=== PATIENT | female | born 1960 | race Caucasian/White ===

== ENCOUNTER 2017-07-14 09:38 | Emergency (ER) | payer OTHER ==
[~2017-07-14] VITALS: Ht 165.1 cm; Wt 76.8 kg
[~2017-07-14 09:38] MED LIST: ASPI-390 PO; ATV5 PO; EFFSR75 PO; FEXO1TAB45 PO
[2017-07-14 09:45] VITALS: TEMP 36.6; Ht 165.1 cm; Wt 76.8 kg
[2017-07-14] MEDS ORDERED: SODIUM CHLORIDE 0.9% 1000ML 1,000 ML IV STA (10:25)
[2017-07-14] MEDS ORDERED: PROCHLORPERAZINE 5 MG/ML 2 ML VIAL IV STA (10:25)
[2017-07-14] MEDS ORDERED: DiphenhydrAMINE HCL 50 MG/ML VIAL IV STA (10:25)
[2017-07-14 10:53] LABS: BASO % 0.2 %; BASO ABS # 0.01 K/uL (0-0.2); EOS % 1.6 %; EOS ABS # 0.08 K/uL (0-0.5); HEMATOCRIT 36.2 % (37-47); HEMOGLOBIN 12.5 g/dL (12.0-16.0); IG# 0.01 K/uL (0.00-0.02); LYMPH % 29.3 %; LYMPH ABS # 1.51 K/uL (1.2-3.4); MEAN CELL VOLUME 89.6 fL (80-100); MEAN CORPUSCULAR HEMOGLOBIN 30.9 pg (25-34); MEAN CORPUSCULAR HGB CONC 34.5 g/dl (32-36); MEAN PLATELET VOLUME 9.7 fL (7.4-10.4); MONO % 5.4 %; MONO ABS # 0.28 K/uL (0.11-0.59); NEUT % 63.3 %; NEUT ABS # 3.27 K/uL (1.4-6.5); PLATELET COUNT 188 K/uL (130-400); RED CELL DISTRIBUTION WIDTH SD 42.5 fL (36.4-46.3); WHITE BLOOD COUNT 5.16 K/uL (4.8-10.8)
[2017-07-14 11:04] LABS: PTT PATIENT 25.2 SECONDS (21.0-31.0)
[2017-07-14 11:12] LABS: CALCIUM 9.1 mg/dl (8.5-10.1); CREATININE 0.72 mg/dl (0.60-1.20); POTASSIUM 3.6 mmol/L (3.5-5.1)
[2017-07-14 11:15] LABS: TOTAL PROTEIN 7.3 gm/dl (6.4-8.2)
--- NOTE | 2017-07-14 11:24 | DIAGNOSTIC IMAGING REPORT ---
CT OF THE HEAD WITHOUT CONTRAST CLINICAL HISTORY: Headache. COMPARISON STUDY: Head CT February 14, 2015. CT DOSE: 912.23 mGycm TECHNIQUE: Helical axial images of the head were obtained without IV contrast. Automated exposure control was utilized for the study. A dose lowering technique was utilized adhering to the principles of ALARA. FINDINGS: No acute intracranial hemorrhage, midline shift or mass effect is present. Brain volume is normal. Ventricular system is normal. The basilar cisterns are patent. There are no extra-axial collections. Valerio-white differentiation is maintained. There are no findings to suggest acute dural sinus thrombosis or acute territorial infarct. There are no significant calvarial abnormalities. Mastoid air cells are clear. There is minimal mucosal thickening of the ethmoid sinuses. IMPRESSION: No acute intracranial findings. Electronically signed by: Keith Puentes M.D. 07/14/2017 11:23 AM Dictated Date/Time: 07/14/2017 11:18 AM
[2017-07-14] MEDS ORDERED: LORA-741 PO (12:06)
[2017-07-14 12:22] LABS: INFLUENZA A PCR Neg for Influ A (NEG); INFLUENZA B PCR Neg for Influ B (NEG)
--- NOTE | 2017-07-14 12:54 | DIAGNOSTIC IMAGING REPORT ---
LUMBAR SPINE 5 VIEWS HISTORY: Low back pain. COMPARISON: None. FINDINGS: There is no fracture. No subluxation. Mild levoscoliosis which could be positional. The sacrum is intact. Mild to moderate facet degenerative changes within the lumbar spine. Moderate disc space narrowing with endplate osteophytes at L2-L3. Mild disc space narrowing at L5-S1. IMPRESSION: 1. No fracture or subluxation within the lumbar spine. 2. Mild levoscoliosis. 3. Degenerative changes as described above most pronounced at the L2-L3 level. Electronically signed by: Eliezer Cabrera M.D. 07/14/2017 12:53 PM Dictated Date/Time: 07/14/2017 12:51 PM
[2017-07-14 13:19] VITALS: BP 140/82; PULSE 74; O2SAT 95
--- NOTE | 2017-07-14 17:24 | EMERGENCY ROOM VISIT NOTE ---
History Report prepared by Neetu: Britta Orr Under the Supervision of: Dr. Rajeev Quiñones M.D. First contact with patient: 10:17 Chief Complaint: FLU LIKE SX Stated Complaint: HEADACHE,LOWER BACK PAIN, SICK IN STOMACH History of Present Illness The patient is a 56 year old female who presents to the Emergency Room with complaints of a constant headache for the past two days. She has a history of migraine headaches and states that initially she thought that she was just having a typical migraine. She states it feels like a migraine but is lasting longer than usual. She reports throbbing pain diffusely throughout her head. Her symptoms are worsened with light and noise. She reports nausea and neck pain. She does not typically have neck pain with her migraines. The patient notes some diffuse body aches. Yesterday she started having lower back pain that is different from her typical arthritis pain. She rates her current pain as a 7/10 in severity. The patient denies fevers, cough, congestion, vomiting, abdominal pain, and diarrhea. Source of History: patient Onset: 2 days ago Position: head Symptom Intensity: 7/10 Quality: other (throbbing) Timing: constant Modifying Factors (Worsening): other (light, sound) Associated Symptoms: + neck pain, + nausea, + back pain, No fevers, No cough , No vomiting, No abdominal pain, No diarrhea Note: Pt notes diffuse body aches. Review of Systems See HPI for pertinent positives & negatives. A total of 10 systems reviewed and were otherwise negative. Past Medical & Surgical Medical Problems: (1) Anxiety (2) Depression Surgical Problems: (1) History of cataract extraction (2) History of total vaginal hysterectomy Family History No pertinent history stated. Social History Smoking Status: Never Smoker Alcohol Use: occasionally Drug Use: none Marital Status: Housing Status: lives with family Occupation Status: employed Current/Historical Medications Scheduled Venlafaxine Hcl (Effexor Extended Rel), 75 MG PO DAILY Scheduled PRN Htldpux-Mdgtjkjbtsgwl-Lcxkdfef (Excedrin Migraine), 2 TAB PO Q12 PRN for Migraine Lorazepam (Ativan), 0.5 MG PO Q6H PRN for Anxiety Allergies Uncoded Allergies: NICKELSULFATE (Allergy, Intermediate, RASH, 06/29/09) Physical Exam Vital Signs Date Time Temp Pulse Resp B/P (MAP) Pulse Ox O2 Delivery O2 Flow Rate FiO2 07/14/17 13:19 74 16 140/82 95 07/14/17 11:02 89 139/77 100 Room Air 07/14/17 09:45 36.6 79 18 133/84 98 Room Air Physical Exam Constitutional: Vital signs reviewed. Eyes: Pupils are equal round reactive to light. Conjunctiva are noninjected. ENT: Pharynx is clear without erythema or exudate. Mucous membranes are moist. Neck supple without meningeal signs. Respiratory: Clear to auscultation bilaterally. Breath sounds are equal bilaterally. Cardiovascular: Regular rate and rhythm. No rubs or gallops. GI: Soft, nondistended and nontender. Bowel sounds are present. Musculoskeletal: No peripheral edema. No lower extremity tenderness. Integumentary: No cyanosis. Neurological: The patient is awake and alert. Cranial nerves II-XII are intact. Motor is 5 out of 5 all extremities. Sensation is intact to light touch all extremities. Normal speech. No pronator drift. Negative Kernig's and Brudzinski's signs. Psychiatric: Normal affect. Medical Decision & Procedures ER Provider Diagnostic Interpretation: Radiology results as stated below per my review and the radiologist's interpretation: LUMBAR SPINE 5 VIEWS HISTORY: Low back pain. COMPARISON: None. FINDINGS: There is no fracture. No subluxation. Mild levoscoliosis which could be positional. The sacrum is intact. Mild to moderate facet degenerative changes within the lumbar spine. Moderate disc space narrowing with endplate osteophytes at L2-L3. Mild disc space narrowing at L5-S1. IMPRESSION: 1. No fracture or subluxation within the lumbar spine. 2. Mild levoscoliosis. 3. Degenerative changes as described above most pronounced at the L2-L3 level. Electronically signed by: Eliezer Cabrera M.D. 07/14/2017 12:53 PM Dictated Date/Time: 07/14/2017 12:[address] OF THE HEAD WITHOUT CONTRAST CLINICAL HISTORY: Headache. COMPARISON STUDY: Head CT February 14, 2015. CT DOSE: 912.23 mGycm TECHNIQUE: Helical axial images of the head were obtained without IV contrast. Automated exposure control was utilized for the study. A dose lowering technique was utilized adhering to the principles of ALARA. FINDINGS: No acute intracranial hemorrhage, midline shift or mass effect is present. Brain volume is normal. Ventricular system is normal. The basilar cisterns are patent. There are no extra-axial collections. Valerio-white differentiation is maintained. There are no findings to suggest acute dural sinus thrombosis or acute territorial infarct. There are no significant calvarial abnormalities. Mastoid air cells are clear. There is minimal mucosal thickening of the ethmoid sinuses. IMPRESSION: No acute intracranial findings. Electronically signed by: Keith Puentes M.D. 07/14/2017 11:23 AM Dictated Date/Time: 07/14/2017 11:18 AM Laboratory Results 07/14/17 10:39 Red Blood Count 4.04, Mean Corpuscular Volume 89.6, Mean Corpuscular Hemoglobin 30.9, Mean Corpuscular Hemoglobin Concent 34.5, Mean Platelet Volume 9.7, Neutrophils (%) (Auto) 63.3, Lymphocytes (%) (Auto) 29.3, Monocytes (%) (Auto) 5.4, Eosinophils (%) (Auto) 1.6, Basophils (%) (Auto) 0.2, Neutrophils # (Auto) 3.27, Lymphocytes # (Auto) 1.51, Monocytes # (Auto) 0.28, Eosinophils # (Auto) 0.08, Basophils # (Auto) 0.01 07/14/17 10:39 Test 07/14/17 10:39 07/14/17 11:00 07/14/17 12:12 White Blood Count 5.16 K/uL (4.8-10.8) Red Blood Count 4.04 M/uL (4.2-5.4) Hemoglobin 12.5 g/dL (12.0-16.0) Hematocrit 36.2 % (37-47) Mean Corpuscular Volume 89.6 fL (80-100) Mean Corpuscular Hemoglobin 30.9 pg (25-34) Mean Corpuscular Hemoglobin Concent 34.5 g/dl (32-36) Platelet Count 188 K/uL (130-400) Mean Platelet Volume 9.7 fL (7.4-10.4) Neutrophils (%) (Auto) 63.3 % Lymphocytes (%) (Auto) 29.3 % Monocytes (%) (Auto) 5.4 % Eosinophils (%) (Auto) 1.6 % Basophils (%) (Auto) 0.2 % Neutrophils # (Auto) 3.27 K/uL (1.4-6.5) Lymphocytes # (Auto) 1.51 K/uL (1.2-3.4) Monocytes # (Auto) 0.28 K/uL (0.11-0.59) Eosinophils # (Auto) 0.08 K/uL (0-0.5) Basophils # (Auto) 0.01 K/uL (0-0.2) RDW Standard Deviation 42.5 fL (36.4-46.3) RDW Coefficient of Variation 13.0 % (11.5-14.5) Immature Granulocyte % (Auto) 0.2 % Immature Granulocyte # (Auto) 0.01 K/uL (0.00-0.02) Prothrombin Time 10.1 SECONDS (9.0-12.0) Prothromb Time International Ratio 1.0 (0.9-1.1) Activated Partial Thromboplast Time 25.2 SECONDS (21.0-31.0) Partial Thromboplastin Ratio 1.0 Anion Gap 5.0 mmol/L (3-11) Est Creatinine Clear Calc Drug Dose 87.3 ml/min Estimated GFR () 107.0 Estimated GFR (Non- 92.3 BUN/Creatinine Ratio 24.0 (10-20) Calcium Level 9.1 mg/dl (8.5-10.1) Total Bilirubin 0.5 mg/dl (0.2-1) Direct Bilirubin 0.1 mg/dl (0-0.2) Aspartate Amino Transf (AST/SGOT) 15 U/L (15-37) Alanine Aminotransferase (ALT/SGPT) 28 U/L (12-78) Alkaline Phosphatase 62 U/L (45-117) Total Protein 7.3 gm/dl (6.4-8.2) Albumin 4.0 gm/dl (3.4-5.0) Influenza Type A (RT-PCR) Neg for Influ A (NEG) Influenza Type B (RT-PCR) Neg for Influ B (NEG) Urine Color YELLOW Urine Appearance CLEAR (CLEAR) Urine pH 8.0 (4.5-7.5) Urine Specific [place] 1.006 (1.000-1.030) Urine Protein NEG (NEG) Urine Glucose (UA) NEG (NEG) Urine Ketones NEG (NEG) Urine Occult Blood NEG (NEG) Urine Nitrite NEG (NEG) Urine Bilirubin NEG (NEG) Urine Urobilinogen NEG (NEG) Urine Leukocyte Esterase NEG (NEG) Laboratory results as reviewed by me. Medications Administered Medications (Trade) Dose Ordered Sig/Sky Route Start Time Stop Time Status Last Admin Dose Admin Sodium Chloride 1,000 ml @ 999 mls/hr Q1H1M STAT IV 07/14/17 10:25 07/14/17 11:25 DC 07/14/17 11:02 999 MLS/HR Prochlorperazine Edisylate (Compazine Inj) 10 mg NOW STAT IV 07/14/17 10:25 07/14/17 10:28 DC 07/14/17 10:58 10 MG Diphenhydramine HCl (Benadryl Inj) 50 mg NOW STAT IV 07/14/17 10:25 07/14/17 10:28 DC 07/14/17 10:58 50 MG ED Course 1017: The patient was evaluated in room B11B. A complete history and physical exam was performed. 1025: Benadryl 50 mg IV, Compazine 10 mg IV, NSS 1000 ml @ 999 mls/hr IV 1238: I updated the patient. Her headache is now just a 2/10. We are waiting for the results of her urine. 1300: I reassessed the patient at this time. She is feeling better and resting comfortably. I discussed the results and treatment plan with the patient. I answered all pertaining questions that she had. She expressed understanding and verbalized agreement. The patient will be discharged home. Medical Decision This is a 56-year-old female presents with headache and nausea and back pain. Differential diagnosis includes migraine headache, tension headache, intracranial bleed, intracranial mass, meningitis, influenza, UTI, lumbar disc disease, strain. I did perform a limited focused review of portions of the patient's old chart on the electronic medical record. The patient has had no recent pertinent visits to this hospital. I did evaluate the patient as noted above. The patient is presenting with a migraine headache. She does complain of some neck pain but has no meningeal signs or fever. I did order a flu test which was negative. IV access was established. I did treat the patient with IV Compazine and Benadryl as well as normal saline IV. I did order and personally review the patient's lumbar x- rays as described above. She does have scoliosis and degenerative changes. Urinalysis was negative. I did order and review the patient's blood work as noted in the electronic medical record. Her white blood cell count was not elevated. I did order a CT of the head. I did review the images myself as well as the radiology report as described above. There is no evidence of acute abnormality. I did reassess the patient. The patient states that her headache is significantly improved and rates it a 2 out of 10 in severity. She also states that her neck pain is resolved. I did discuss the test results with the patient. I did recommend follow-up with her doctor. She was discharged in good condition. Medication Reconcilliation Current Medication List: was personally reviewed by me Blood Pressure Screening Patient's blood pressure: Elevated blood pressure Blood pressure disposition: Referred to PCP Impression Primary Impression: Headache Additional Impression: Low back pain Scribe Attestation The scribe's documentation has been prepared under my direct and personally reviewed by me in its entirety. I confirm that the note above accurately reflects all work, treatment, procedures, and medical decision making performed by me. Departure Information Dispostion Home / Self-Care Referrals Jacklyn Burgos M.D. (PCP) Forms HOME CARE DOCUMENTATION FORM, IMPORTANT VISIT INFORMATION Patient Instructions Back Pain - [facility], ED Headache Migraine, My [facility] Additional Instructions You have been examined and treated today on an emergency basis only. This is not a substitute for, or an effort to provide, complete comprehensive medical care. It is impossible to recognize and treat all injuries or illnesses in a single emergency department visit. It is therefore important that you follow up closely with your physician. Call as soon as possible for an appointment. Return for worsening symptoms or if you develop fever, vomiting, abdominal pain , loss of control of your bowel or bladder, numbness or weakness to your legs, numbness to your private area, difficulty urinating, or any other concerning symptoms. Problem Qualifiers Primary Impression: Headache Headache type: unspecified Headache chronicity pattern: acute headache Intractability: not intractable Qualified Codes: R51 - Headache Additional Impression: Low back pain Chronicity: chronic Back pain laterality: unspecified Sciatica presence: without sciatica Qualified Codes: M54.5 - Low back pain; G89.29 - Other chronic pain
== END 2017-07-14 13:19 | disposition home or self-care (01) ==
LOC: C.EDB 09:39
DX: R51 Headache (principal); M54.5 Low back pain; F41.9 Anxiety disorder, unspecified; F32.9 Major depressive disorder, single episode, unspecified; Z88.8 Allergy status to other drugs, medicaments and biological substances